=== PATIENT | male | born 1955 | race Caucasian/White ===

== ENCOUNTER 2018-05-24 15:41 | Observation (INO) ==
--- NOTE | 2018-05-24 16:18 | ED ---
HPI General Chief Complaint: Chest Pain Stated Complaint: Chest pain/SOB Time Seen by Provider: 05/24/18 16:12 Source: patient Mode of arrival: ambulatory Limitations: no limitations History of Present Illness HPI narrative: 62y male presents to the ED with a 1 day history of intermittent chest pain. Denies cardiac or pulmonary medical history. Has a history of HTN and HLD for which he takes medication. Says his last stress test was 10 years ago and was normal. His PCP was performing echocardiograms previously but this stopped years ago. Denies tobacco use. Occassional alcohol use but says he had 5 beers yesterday as it was May 23. Family history significant for father who dies of OK in his mid- 60s. MD complaint: chest pain Complete Quality Measures for STEMI Alert Patients Onset (ago): day(s) (1 day) Duration: intermittent Onset: during exertion Pain location: substernal Severity: mild Quality: tightness and other (heavy) Pain radiation: none Relieving factors: rest Exacerbating factors: exertion Context: other Associated symptoms: dyspnea Treatments prior to arrival chest pain: aspirin (162mg) Related Data Home Medications Medication Instructions Recorded Confirmed alprazolam 0.25 mg PO BID PRN 05/24/18 05/24/18 aspirin [Aspir-81] 81 mg PO DAILY 05/24/18 05/24/18 fenofibrate nanocrystallized 145 mg PO DAILY 05/24/18 05/24/18 metoprolol succinate 25 mg PO DAILY 05/24/18 05/24/18 multivitamin [Multiple Vitamins] 1 tab PO DAILY 05/24/18 05/24/18 olmesartan 40 mg PO DAILY 05/24/18 05/24/18 omega 9-zlc-vrg-fish oil [Fish Oil] 1,000 mg PO DAILY 05/24/18 05/24/18 omeprazole 20 mg PO DAILY 05/24/18 05/24/18 Allergies Allergy/AdvReac Type Severity Reaction Status Date / Time No Known Allergies Allergy Unverified 05/24/18 17:52 Review of Systems Except as stated in HPI: all other systems reviewed are negative [facility] Medical History Medical History Glaucoma (Acute) High cholesterol (Acute) Hypertension (Acute) Surgical History Surgical History Status post surgical removal of malignant neoplasm of skin (Acute) Social History Social History Substance History: No History of Abuse Second Hand Smoke Exposure: No Smoking Status: Never smoker How Often Do You Have a Drink Containing Alcohol: 2 to 4 times a month Recent Travel in [facility] within the Last 8 Weeks: No Recent Out of Country Travel within the Last 8 Weeks: No Immunization History Tetanus Immunization: >5 Years Hx Influenza Vaccine This Season: Yes Exam Narrative Exam Narrative: GENERAL: Well-developed, well-nourished no apparent distress SKIN: Focused skin assessment warm/dry. HEAD: Atraumatic. Normocephalic. EYES: Pupils equal and round. No scleral icterus. No injection or drainage. ENT: No nasal bleeding or discharge. Mucous membranes pink and moist. NECK: Trachea midline. No JVD. CARDIOVASCULAR: Regular rate and rhythm. No murmur appreciated. RESPIRATORY: No accessory muscle use. Clear to auscultation. Breath sounds equal bilaterally. No tenderness palpation of the chest wall GASTROINTESTINAL: Abdomen soft, protuberant, non-tender, nondistended. Hepatic and splenic margins not palpable. MUSCULOSKELETAL: No obvious deformities. No clubbing. No cyanosis. No edema. NEUROLOGICAL: Awake and alert. No obvious cranial nerve deficits. Motor grossly within normal limits. Normal speech. PSYCHIATRIC: Appropriate mood and affect; insight and judgment normal. Course Initial Documented Vital Signs Temperature 98.5 F 05/24/18 15:45 Pulse Rate 108 H 05/24/18 15:45 Respiratory Rate 22 05/24/18 15:45 Blood Pressure 196/93 H 05/24/18 15:45 Pulse Oximetry 100 05/24/18 15:45 Last Documented Vital Signs Temperature 96.7 F L 05/24/18 20:00 Pulse Rate 101 H 05/24/18 20:00 Respiratory Rate 18 05/24/18 20:00 Blood Pressure 166/90 H 05/24/18 20:00 Pulse Oximetry 96 05/24/18 20:00 Medical Decision Making GERMAN Attestation GERMAN supervised visit: Yes MDM Narrative Medical decision making narrative: 62-year-old male presents emergency department for evaluation of chest pain that started 1 day ago. His vital signs are stable. Labs and imaging studies are fairly unremarkable. There is some elevation of alkaline phosphatase consistent with patient's history of increased alcohol intake yesterday. I discussed with the and the patient. They agreed to the chest pain center admission. Note that patient took 2 full aspirins prior to arrival for his headache. Note that his headache is also resolved. Differential Diagnosis Differential Diagnosis: atypical chest pain, STEMI, NSTEMI, angina Lab Data Result diagrams: 05/24/18 16:25 05/24/18 16:25 Lab Results 05/24/18 05/24/18 05/24/18 Range/Units 16:25 16:25 17:09 WBC 6.7 (4.0-11.0) th/mm3 RBC 5.04 (4.50-5.90) mil/mm3 Hgb 15.8 (13.0-17.0) gm/dL Hct 45.9 (39.0-51.0) % MCV 91.0 (80.0-100.0) fL MCH 31.4 (27.0-34.0) pg MCHC 34.5 (32.0-36.0) % RDW 13.9 (11.6-17.2) % Plt Count 220 (150-450) th/mm3 MPV 8.9 (7.0-11.0) fL Neut % (Auto) 52.4 (16.0-70.0) % Lymph % (Auto) 30.1 (9.0-44.0) % Guthrie % (Auto) 8.4 H (0.0-8.0) % Eos % (Auto) 7.6 H (0.0-4.0) % Baso % (Auto) 1.5 (0.0-2.0) % Neut # (Auto) 3.5 (1.8-7.7) th/mm3 Lymph # (Auto) 2.0 (1.0-4.8) th/mm3 Guthrie # (Auto) 0.6 (0.0-0.9) th/mm3 Eos # (Auto) 0.5 H (0.0-0.4) th/mm3 Baso # (Auto) 0.1 (0.0-0.2) th/mm3 WBC Differential . Differential Comment Auto diff final PT 10.5 (9.8-11.6) sec INR 1.0 Ratio APTT 25.8 (24.3-30.1) sec Sodium 140 (136-145) meq/L Potassium 4.4 (3.5-5.1) meq/L Chloride 107 (98-107) meq/L Carbon Dioxide 22.2 (21.0-32.0) meq/L Anion Gap 11 (5-15) meq/L BUN 14 (7-18) mg/dL Creatinine 1.36 H (0.60-1.30) mg/dL Estimated GFR 53 L (>89) mL/min Random Glucose 146 H (74-106) mg/dL Calcium 9.0 (8.5-10.1) mg/dL Magnesium 1.9 (1.5-2.5) mg/dL Total Bilirubin 0.5 (0.2-1.0) mg/dL AST 49 H (15-37) U/L ALT 43 (12-78) U/L Alkaline Phosphatase 280 H (45-117) U/L Total Creatine Kinase 232 (39-308) U/L CK-MB (CK-2) 1.6 (0.5-3.6) ng/mL Troponin I Less than 0.02 L (0.02-0.05) ng/mL Total Protein 7.7 (6.4-8.2) g/dL Albumin 4.2 (3.4-5.0) g/dL Imaging Data Radiologist's impression: ITS Impressions Chest X-Ray 05/24/18 16:13 CONCLUSION: 1. No acute abnormality or significant interval change. Discharge Plan Discharge Disposition Patient Disposition: 30 Still Patient Discharge Condition Condition: Stable Discharge Details Discharge Problem: Atypical chest pain Physicians Team ED Provider: Oumou Walker ED Midlevel Provider: Martha Bledsoe Primary Care Provider: Kyle Kimball Attending Provider: Tanner Obregon Discharge Interventions Interventions: ED Discharge Assessment Last Done: 05/24/18 18:32 Vital Signs Last Done: 05/24/18 15:58 Status ED Status: Left Department Discharge Information Discharge Date/Time: 05/24/18 18:32
--- NOTE | 2018-05-24 16:28 | XR ---
EXAM DATE: 05/24/2018 4:25 PM EDT AGE/SEX: 62 years / Male INDICATIONS: Mid chest pain. CLINICAL DATA: This is the patient's initial encounter. Patient reports that signs and symptoms have been present for 1 day and indicates a pain score of 4/10. MEDICAL/SURGICAL HISTORY: None. None. COMPARISON: POI, XR CHEST PA AND LAT, 09/29/2016. . FINDINGS: No new focal pleural or parenchymal opacities. The cardiomediastinal contours are unremarkable. Osse ous structures are intact. CONCLUSION: 1. No acute abnormality or significant interval change. Electronically signed by: Marco Antonio Srinivasan MD 05/24/2018 4:27 PM EDT
[2018-05-24 16:55] LABS: Baso # (Auto) 0.1 th/mm3 (0.0-0.2); Baso % (Auto) 1.5 % (0.0-2.0); Eos # (Auto) 0.5 th/mm3 (0.0-0.4); Eos % (Auto) 7.6 % (0.0-4.0); Hematocrit 45.9 % (39.0-51.0); Hemoglobin 15.8 gm/dL (13.0-17.0); Lymph % (Auto) 30.1 % (9.0-44.0); Mean Corpuscular HGB Conc 34.5 % (32.0-36.0); Mean Corpuscular Hemoglobin 31.4 pg (27.0-34.0); Mean Platelet Volume 8.9 fL (7.0-11.0); Mono # (Auto) 0.6 th/mm3 (0.0-0.9); Mono % (Auto) 8.4 % (0.0-8.0); Neut # (Auto) 3.5 th/mm3 (1.8-7.7); Neut % (Auto) 52.4 % (16.0-70.0); Platelet Count 220 th/mm3 (150-450); Red Blood Count 5.04 mil/mm3 (4.50-5.90); Red Cell Distribution Width 13.9 % (11.6-17.2); White Blood Count 6.7 th/mm3 (4.0-11.0)
[2018-05-24 17:17] LABS: Alanine Aminotransferase 43 U/L (12-78); Albumin 4.2 g/dL (3.4-5.0); Alkaline Phosphatase 280 U/L (45-117); Anion Gap 11 meq/L (5-15); Aspartate Aminotransferase 49 U/L (15-37); Blood Urea Nitrogen 14 mg/dL (7-18); Carbon Dioxide 22.2 meq/L (21.0-32.0); Chloride 107 meq/L (98-107); Creatine Kinase 232 U/L (39-308); Glomerular Filtration Rate 53 mL/min (>89); Glucose,Random 146 mg/dL (74-106); Magnesium 1.9 mg/dL (1.5-2.5); Sodium 140 meq/L (136-145); Total Protein 7.7 g/dL (6.4-8.2)
[2018-05-24 17:18] LABS: Potassium 4.4 meq/L (3.5-5.1)
[2018-05-24 17:30] LABS: Activated Partial Thrombo Time 25.8 sec (24.3-30.1); Prothrombin Time 10.5 sec (9.8-11.6)
[2018-05-24 17:31] LABS: Creatine Kinase MB 1.6 ng/mL (0.5-3.6)
--- NOTE | 2018-05-24 17:54 | ECG ---
Date Performed: 05/24/2018 Time Performed: 16:07:03 PTAGE: 62 years EKG: SINUS TACHYCARDIA ABNORMAL RHYTHM ECG NO PREVIOUS TRACING DOCTOR: Manas Grullon Interpretating Date/Time 05/24/2018 17:52:30
--- NOTE | 2018-05-24 21:47 | ECG ---
Date Performed: 05/24/2018 Time Performed: 20:22:40 PTAGE: 62 years EKG: Sinus rhythm MODERATE INTRAVENTRICULAR CONDUCTION DELAY BORDERLINE ECG No significant change from prior electroca rdiogram. PREVIOUS TRACING : 05/24/2018 16.07 DOCTOR: Manas Grullon Interpretating Date/Time 05/24/2018 21:46:20
[2018-05-24 22:56] LABS: Creatine Kinase 177 U/L (39-308)
[2018-05-25 01:12] LABS: Creatine Kinase 158 U/L (39-308)
--- NOTE | 2018-05-25 08:53 | P.HPCA ---
History of Present Illness Primary Care Physician: Kyle Kimball MD Chief Complaint: Chest pain History of Present Illness: This is a 62-year-old male has history of hypertension hyperlipidemia that presents to ED via private vehicle with a complaint of developing a discomfort in his chest yesterday while mowing grass. It was in the center of his chest. States is sore. States he can re-create the discomfort by pressing on the area. Less about an hour. He states he stopped mowing went for walk with his and it seemed to improve. He is not short of breath. Was not nauseous. Hard to save his diaphoretic. Started sweating pretty good from mowing the grass. Denies prior knowledge of CAD. There is family history of CAD with apparent testing at age 64 of cardiac issues. Currently denies chest discomfort. Denies recent illnesses. Patient is a non-smoker. Has occasional alcohol. Denies illicit drug use. Surgical history: Noncontributory. Cannot recall ever having heart catheterization. - Diagnosis (1) Chest pain (2) Hypertension (3) Hyperlipidemia (4) Obesity (5) Hyperglycemia Inpatient Certification: I certify that the inpatient services were ordered in accordance with Medicare regulations governing the order. This includes certification that hospital inpatient services are reasonable and necessary and in the case of services not specified as inpatient-only under 42 CFR 419.22(n), that they are appropriately provided as inpatient services in accordance to with the 2-midnight benchmark under 43 CFR 412.3(e) Review of Systems General: Patient denies fevers, chills, and recent travel. HEENT: Patient denies headache, sore throat, difficulty swallowing. Cardiovascular: Has the chest discomfort as mentioned above. Denies sensation of heart beating rapidly or irregularly. No syncope. Denies diaphoresis. Respiratory: Denies shortness of breath or inspirational chest discomfort. Denies coughing wheezing or hemoptysis. GI: Patient denies nausea, vomiting, diarrhea, abdominal pain, bloody stools. Musculoskeletal: Patient denies joint pain or edema. Denies calf pain or edema. Neurovascular: Patient denies numbness, tingling, weakness in extremities. Denies headache. Endocrine: Denies polyuria and polydipsia. Hematologic: Denies easy bruising. Skin: Denies rash or itching. PMFSH - History History Provided By: Patient - Medical History Medical History: Medical History (Last Updated 05/24/18 @ 16:09 by Rose Lopez RN) Glaucoma High cholesterol Hypertension - Surgical History Surgical History: Surgical History (Last Updated 05/24/18 @ 16:10 by Rose oLpez RN) Status post surgical removal of malignant neoplasm of skin - Tobacco History Second Hand Smoke Exposure: No Smoking Status: Never smoker - Alcohol History How Often Do You Have a Drink Containing Alcohol: 2 to 4 times a month - Substance Use History Substance History: No History of Abuse - Travel History Recent Travel in the [place] Within the Last 8 Weeks: No Recent Travel Out of the Country Within the Last 8 Weeks: No - Immunization History Tetanus Immunization: >5 Years Hx Influenza Vaccine This Season: Yes Medications and Allergies Active Medications: Active Medications Fenofibrate (Tricor) 145 mg PO DAILY BRYAN Metoprolol Succinate (Toprol Xl) 25 mg PO DAILY BRYAN Non-Formulary Medication (Olmesartan [Olmesartan]) 40 mg PO DAILY BRYAN Non-Formulary Medication (Omeprazole [Omeprazole]) 20 mg PO DAILY BRYAN Sodium Chloride (Ns Flush) 2 ml IV.FLUSH UNSCH PRN PRN Reason: FLUSH AFTER USING IV ACCESS Allergies Allergy/AdvReac Type Severity Reaction Status Date / Time No Known Allergies Allergy Unverified 05/24/18 17:52 Home Medications Medication Instructions Recorded Confirmed Type alprazolam 0.25 mg PO BID PRN 05/24/18 05/24/18 History aspirin [Aspir-81] 81 mg PO DAILY 05/24/18 05/24/18 History fenofibrate nanocrystallized 145 mg PO DAILY 05/24/18 05/24/18 History metoprolol succinate 25 mg PO DAILY 05/24/18 05/24/18 History multivitamin [Multiple Vitamins] 1 tab PO DAILY 05/24/18 05/24/18 History olmesartan 40 mg PO DAILY 05/24/18 05/24/18 History omega 7-bdx-cbr-fish oil [Fish Oil] 1,000 mg PO DAILY 05/24/18 05/24/18 History omeprazole 20 mg PO DAILY 05/24/18 05/24/18 History Exam Vital signs: Vital Signs 05/24/18 15:45 05/24/18 15:58 05/24/18 16:13 Temperature 98.5 F Pulse Rate 108 H 105 H Respiratory Rate 22 21 Blood Pressure 196/93 H 187/101 H Pulse Oximetry 100 97 97 05/24/18 20:00 05/24/18 22:12 05/24/18 22:50 Temperature 96.7 F L 98 F Pulse Rate 101 H 84 Respiratory Rate 18 16 Blood Pressure 166/90 H 141/80 H Pulse Oximetry 96 98 98 05/25/18 00:00 05/25/18 04:00 05/25/18 05:54 Temperature 97.6 F Pulse Rate 78 84 76 Respiratory Rate 18 Blood Pressure 154/86 H Pulse Oximetry 98 Intake & Output 05/24/18 05/25/18 05/25/18 18:59 06:59 18:59 Weight 125.645 kg Narrative: GENERAL: This is a well-nourished, well-developed patient, in no apparent distress. He is obese at 125 kg. Patient speaks in clear complete sentences. Patient is pleasant. HEENT: Head is atraumatic and normocephalic. Neck is supple without lymphadenopathy and trachea is midline. No JVD or carotid bruits. CARDIOVASCULAR: Regular rate and rhythm without murmurs, gallops, or rubs. RESPIRATORY: Clear to auscultation. Breath sounds equal bilaterally. No wheezes , rales, or rhonchi. Chest wall is nontender. No use of accessory muscles. GASTROINTESTINAL: Abdomen is nontender, nondistended. Abdomen soft. No obvious pulsatile mass or bruit. No CVA tenderness. Strong femoral pulses bilaterally. Normal bowel sounds in all quadrants. MUSCULOSKELETAL: Patient is moving upper and lower extremities freely. No calf tenderness or edema, no Homans sign. Strong pulses in upper and lower extremities. NEUROLOGICAL: Patient is alert and oriented. Cranial nerves 2-12 are grossly intact. No focal deficits and speech is clear. SKIN: No rash and turgor is normal. Results 05/24/18 16:25 05/24/18 16:25 Cardiac Enzymes 05/24/18 05/24/18 05/25/18 Range/Units 16:25 22:00 00:14 AST 49 H (15-37) U/L CK-MB (CK-2) 1.6 (0.5-3.6) ng/mL Troponin I Less than 0.02 L Less than 0.02 L Less than 0.02 L (0.02-0.05) ng/mL Coagulation 05/24/18 Range/Units 17:09 PT 10.5 (9.8-11.6) sec APTT 25.8 (24.3-30.1) sec CBC 05/24/18 Range/Units 16:25 WBC 6.7 (4.0-11.0) th/mm3 RBC 5.04 (4.50-5.90) mil/mm3 Hgb 15.8 (13.0-17.0) gm/dL Hct 45.9 (39.0-51.0) % Plt Count 220 (150-450) th/mm3 Neut # (Auto) 3.5 (1.8-7.7) th/mm3 Lymph # (Auto) 2.0 (1.0-4.8) th/mm3 Gladwin # (Auto) 0.6 (0.0-0.9) th/mm3 Eos # (Auto) 0.5 H (0.0-0.4) th/mm3 Baso # (Auto) 0.1 (0.0-0.2) th/mm3 Comprehensive Metabolic Panel 05/24/18 Range/Units 16:25 Sodium 140 (136-145) meq/L Potassium 4.4 (3.5-5.1) meq/L Chloride 107 (98-107) meq/L Carbon Dioxide 22.2 (21.0-32.0) meq/L BUN 14 (7-18) mg/dL Creatinine 1.36 H (0.60-1.30) mg/dL Calcium 9.0 (8.5-10.1) mg/dL AST 49 H (15-37) U/L ALT 43 (12-78) U/L Alkaline Phosphatase 280 H (45-117) U/L Total Protein 7.7 (6.4-8.2) g/dL Albumin 4.2 (3.4-5.0) g/dL Intake and Output 05/24/18 05/25/18 05/25/18 22:59 06:59 14:59 Other: Weight 125.645 kg EKG interpretations - EKG EKG shows: sinus rhythm (EKGs are sinus rhythm without significant ST segment depressions or elevations.) Caprini VTE Risk Assessment Caprini VTE Risk Assessment: Moderate/High Risk (score >= 2) Caprini Risk Assessment Model: Point Value = 1 Point Value = 2 Point Value = 3 Point Value = 5 Age 41-60 Minor surgery BMI > 25 kg/m2 Swollen legs Varicose veins or History of unexplained or recurrent spontaneous Oral contraceptives or hormone replacement Sepsis (< 1 month) Serious lung disease, including pneumonia (< 1 month) Abnormal pulmonary function Acute myocardial infarction Congestive heart failure (< 1 month) History of inflammatory bowel disease Medical patient at bed rest Age 61-74 Arthroscopic surgery Major open surgery (> 45 min) Laparoscopic surgery (> 45 min) Malignancy Confined to bed (> 72 hours) Immobilizing plaster cast Central venous access Age >= 75 History of VTE Family history of VTE Factor V Leiden Prothrombin [id number] Lupus anticoagulant Anticardiolipin antibodies Elevated serum homocysteine Heparin-induced thrombocytopenia Other congenital or acquired thrombophilia Stroke (< 1 month) Elective arthroplasty Hip, pelvis, or leg fracture Acute spinal cord injury (< 1 month) Prophylaxis Regimen: Total Risk Factor Score Risk Level Prophylaxis Regimen 0-1 Low Early ambulation 2 Moderate Order ONE of the following: *Sequential Compression Device (SCD) *Heparin 5000 units SQ BID 3-4 Higher Order ONE of the following medications: *Heparin 5000 units SQ TID *Enoxaparin/Lovenox 40 mg SQ daily (WT < 150 kg, CrCl > 30 mL/min) *Enoxaparin/Lovenox 30 mg SQ daily (WT < 150 kg, CrCl > 10-29 mL/min) *Enoxaparin/Lovenox 30 mg SQ BID (WT < 150 kg, CrCl > 30 mL/min) AND/OR *Sequential Compression Device (SCD) 5 or more Highest Order ONE of the following medications: *Heparin 5000 units SQ TID (Preferred with Epidurals) *Enoxaparin/Lovenox 40 mg SQ daily (WT < 150 kg, CrCl > 30 mL/min) *Enoxaparin/Lovenox 30 mg SQ daily (WT < 150 kg, CrCl > 10-29 mL/min) *Enoxaparin/Lovenox 30 mg SQ BID (WT < 150 kg, CrCl > 30 mL/min) AND *Sequential Compression Device (SCD) Assessment and Plan - Assessment (1) Chest pain Code(s): R07.9 - Chest pain, unspecified Status: Acute (2) Hypertension Code(s): I10 - Essential (primary) hypertension Status: Acute (3) Hyperlipidemia Code(s): E78.5 - Hyperlipidemia, unspecified Status: Acute (4) Obesity Code(s): E66.9 - Obesity, unspecified Status: Acute (5) Hyperglycemia Code(s): R73.9 - Hyperglycemia, unspecified Status: Acute - Plan * Chest pain: Patient has had serial cardiac enzymes and EKGs for ruling out purposes. He was seen by Dr. Dennis Ocasio of cardiology in the chest pain center. He will undergo a Mitchell protocol ETT and be discharged home if the stress test is nonischemic with instructions to follow-up with PCP. Return to ED for interval issues. * Hypertension: Continue medications. * Hyperlipidemia: Continue medication. * Obesity: Patient counseled importance of diet, exercise, weight loss. Patient is stable at this time. He is agreeable to this plan. H&P: Quality - VTE Deep Vein Thrombosis/Pulmonary Embolism Present on Admission: No
[2018-05-25] MEDS ORDERED: Pantoprazole Sodium 20 MG DR Tablet PO SCH (10:00)
[2018-05-25] MEDS ORDERED: Fenofibrate 145 MG Tablet PO SCH (10:00)
--- NOTE | 2018-05-25 14:18 | TR ---
Date Performed: 05/25/2018 Time Performed: 09:06:26 DOCTOR: Dennis Ocasio DRUG LIST: CLINICAL HISTORY: CHEST PAIN REASON FOR TEST: CHEST PAIN REASON FOR ENDING: OBSERVATION: CONCLUSION: SHA PROTOCOL. NO CP. TEST STOPPED AFTER EXCEEDING GOAL HR SECONDARY TO SOB AND LE G FATIGUE.Maximum LQ=415 % Max HR Moelbrsf=086.0% Maximum LM=700/90 Total Exercise Time=5:00 COMMENTS: Patient exercised using the Sha protocol. No electrocardiographic changes were seen to suggest ischemia. Hemodynamic response to exercise was normal. No significant arrhythmia was prese nt.
--- NOTE | 2018-05-25 14:29 | ECG ---
Date Performed: 05/24/2018 Time Performed: 22:45:58 PTAGE: 62 years EKG: Sinus rhythm ABNORMAL ECG PREVIOUS TRACING : 05/24/2018 20.22 Since previous tracing, no significant change noted DOCTOR: Dennis Ocasio Interpretating Date/Time 05/25/2018 14:28:18
== END 2018-05-25 10:57 | disposition home or self-care (01) ==
LOC: NEDA 15:41 → NEPFCDU 15:41 → NEPE 15:41 → NEDA 18:32 → NEPFCDU 19:38
PROVIDERS: ADMIT Internal Medicine Interventional Cardiology; ATTEND Internal Medicine Interventional Cardiology